=== PATIENT | female | born 1950 | race Caucasian/White ===

== ENCOUNTER 2024-11-24 09:18 | Inpatient (IN) | payer MEDICARE, OTHER ==
[2024-11-24] VITALS (11 sets, daily range): BP systolic 106–119; BP diastolic 52–66; TEMP 97.2–98.2; O2SAT 90–98
[~2024-11-24] VITALS: Ht 165.1 cm; Wt 77.1 kg
[2024-11-24 10:25] LABS: BASOPHILS % (AUTO) 0.1 % (0.0-2.0); HEMATOCRIT 38.7 % (31.2-41.9); HEMOGLOBIN 13.2 g/dL (10.9-14.3); LYMPHOCYTES # (AUTO) 0.5 K/uL (0.8-4.8); LYMPHOCYTES % (AUTO) 8.5 % (20.5-51.5); MEAN CORPUSCULAR HEMOGLOBIN 29.4 uug (24.7-32.8); MEAN CORPUSCULAR HGB CONC 34 g/dL (32.3-35.6); MEAN CORPUSCULAR VOLUME 86.4 fL (75.5-95.3); MONOCYTES # (AUTO) 0.1 K/uL (0.1-1.30); MONOCYTES % (AUTO) 1.7 % (0.0-11.0); NEUTROPHILS # (AUTO) 5.8 K/uL (1.8-8.9); NEUTROPHILS % (AUTO) 89.7 % (38.5-71.5); PLATELET COUNT (AUTO) 203 K/uL (179-408); RED BLOOD CELL COUNT(AUTO) 4.48 MIL/uL (3.63-4.92); RED CELL DISTRIBUTION WIDTH 14.5 % (12.3-17.7); WHITE BLOOD COUNT (AUTO) 6.5 K/uL (3.8-11.8)
[2024-11-24 10:32] LABS: DIFFERENTIAL COMMENT 1
[2024-11-24 10:35] LABS: CALCIUM 8.6 mg/dL (8.5-10.1); CARBON DIOXIDE 23 mmol/L (21-32); CHLORIDE 90 mmol/L (98-107); CREATININE 1.5 mg/dL (0.6-1.3); GLUCOSE 92 mg/dL (74-106); POTASSIUM 3.6 mmol/L (3.5-5.1); SODIUM SERUM 126 mmol/L (136-145); UREA NITROGEN, BLOOD 28 mg/dL (7-18)
[2024-11-24] MEDS ORDERED: AZITHROMYCIN 500MG/ D5W 250ML IVPB **ER PYXIS ONLY IV ONE (10:36)
[2024-11-24] MEDS: AZITHROMYCIN IV 500 MG in IV DEXTROSE 5% 250 ML IV ONE (10:43)
[2024-11-24 10:48] LABS: ALANINE AMINOTRANSFERASE 20 U/L (14-59); ALBUMIN 2.2 g/dL (3.4-5.0); ALKALINE PHOSPHATASE 58 U/L (50-136); ASPARTATE AMINOTRANSFERASE 36 U/L (15-37); BILIRUBIN,DIRECT 0.6 mg/dL (0.0-0.2); BILIRUBIN,TOTAL 1.1 mg/dL (0.2-1.0); NT-PRO BNP 551 pg/mL (0-125); TOTAL PROTEIN, SERUM 6.7 g/dL (6.4-8.2)
[2024-11-24] MEDS ORDERED: ALBUTEROL SULFATE 2.5 MG/3 ML NEBU ONE (11:28)
[2024-11-24] MEDS ORDERED: IPRATROPIUM BROMIDE 0.5 MG/2.5 ML NEBU ONE (11:28)
[2024-11-24] MEDS: CEFTRIAXONE 1 G in IV DEXTROSE 5% 50 ML IV ONE (11:48)
[2024-11-24] MEDS: ALBUTEROL SULFATE 2.5 MG/3 ML NEBU NEB ONE (11:51)
[2024-11-24] MEDS: IPRATROPIUM BROMIDE 0.5 MG/2.5 ML NEBU NEB ONE (11:51)
[2024-11-24] MEDS: IV NS 1000 ML 1,000 ML IV ONE (11:54)
[2024-11-24] MEDS ORDERED: GUAIFENESIN/CODEINE 5 ML LIQUID UDC ONE (13:18)
[2024-11-24] MEDS: GUAIFENESIN/CODEINE 5 ML LIQUID UDC PO ONE (13:20)
[2024-11-24] MEDS ORDERED: ALBUTEROL SULFATE 1.25 MG/3 ML NEBU NEB PRN (16:30)
[2024-11-24] MEDS ORDERED: methylPREDNISolone SOD SUCC 125 MG/2 ML VIAL IV SCH (16:30)
[2024-11-24] MEDS ORDERED: IPRATROPIUM BROMIDE 0.5 MG/2.5 ML NEBU NEB PRN (16:30)
[2024-11-24] MEDS ORDERED: ONDANSETRON 4 MG/2 ML VIAL IV PRN (16:30)
[2024-11-24] MEDS ORDERED: levoFLOXacin 500 MG/D5W 500 MG in PREMIXED 1 EACH IV SCH (16:30)
[2024-11-24] MEDS ORDERED: IV NORMAL SALINE 250 ML IV ONE (16:38)
[2024-11-24] MEDS ORDERED: SWABABLE VALVE TRANSFER SET EA MC ONE (16:38)
[2024-11-24] MEDS ORDERED: IOHEXOL 300MG/ML 100 ML INFUS..BTL ONE (16:38)
[2024-11-24] MEDS: methylPREDNISolone SOD SUCC 40 MG/ML VIAL IV SCH (17:34)
[2024-11-24] MEDS: ALBUTEROL SULFATE 1.25 MG/3 ML NEBU NEB SCH (18:19)
[2024-11-24] MEDS: IPRATROPIUM BROMIDE 0.5 MG/2.5 ML NEBU NEB SCH (18:19)
[2024-11-24] MEDS: IV NS 1000 ML 1,000 ML IV PRN (20:05)
[2024-11-24] MEDS: ENOXAPARIN SODIUM 40 MG/0.4 ML DISP.SYRIN SQ SCH (21:30)
[2024-11-24] MEDS: GUAIFENESIN/DEXTROMETHORPHAN 5 ML UDC PO PRN (22:00)
[2024-11-25] VITALS (17 sets, daily range): BP systolic 115–132; BP diastolic 47–87; TEMP 97.3–99.1; O2SAT 93–100
[2024-11-25 07:58] LABS: CALCIUM 8.4 mg/dL (8.5-10.1); CARBON DIOXIDE 26 mmol/L (21-32); CHLORIDE 95 mmol/L (98-107); CHOLESTEROL 100 mg/dL (<200); CREATININE 0.9 mg/dL (0.6-1.3); GLUCOSE 152 mg/dL (74-106); HDL CHOLESTEROL 19 mg/dL (40-60); PHOSPHOROUS 2.4 mg/dL (2.5-4.9); SODIUM SERUM 129 mmol/L (136-145); TRIGLYCERIDES 126 MG/DL (30-150); UREA NITROGEN, BLOOD 24 mg/dL (7-18)
[2024-11-25] MEDS: POTASSIUM CHLORIDE 10 MEQ TAB.PRT.SR PO SCH (09:24)
[2024-11-25] MEDS: AZITHROMYCIN IV 500 MG in IV DEXTROSE 5% 250 ML IV SCH (09:24)
[2024-11-25 12:16] LABS: BASOPHILS % (AUTO) 0.2 % (0.0-2.0); DIFFERENTIAL COMMENT 1; HEMATOCRIT 33.6 % (31.2-41.9); HEMOGLOBIN 11.6 g/dL (10.9-14.3); LYMPHOCYTES # (AUTO) 0.5 K/uL (0.8-4.8); LYMPHOCYTES % (AUTO) 7.5 % (20.5-51.5); MEAN CORPUSCULAR HEMOGLOBIN 29.6 uug (24.7-32.8); MEAN CORPUSCULAR HGB CONC 35 g/dL (32.3-35.6); MEAN CORPUSCULAR VOLUME 85.8 fL (75.5-95.3); MONOCYTES # (AUTO) 0.3 K/uL (0.1-1.30); MONOCYTES % (AUTO) 3.6 % (0.0-11.0); NEUTROPHILS # (AUTO) 6.2 K/uL (1.8-8.9); NEUTROPHILS % (AUTO) 88.7 % (38.5-71.5); PLATELET COUNT (AUTO) 199 K/uL (179-408); RED BLOOD CELL COUNT(AUTO) 3.92 MIL/uL (3.63-4.92); RED CELL DISTRIBUTION WIDTH 14.5 % (12.3-17.7)
[2024-11-25] MEDS: CEFTRIAXONE 1 G in IV DEXTROSE 5% 50 ML IV SCH (12:19)
[2024-11-25] MEDS: BENZONATATE 100 MG CAPSULE PO SCH (12:19)
[2024-11-25] MEDS: NEUTRA PHOS PACKET PO SCH (15:54)
[2024-11-25] MEDS ORDERED: LORA-259 PO (18:30)
[2024-11-25] MEDS ORDERED: LOSA50TA39 PO (18:30)
[2024-11-25] MEDS ORDERED: ASPI-618 PO (18:32)
[2024-11-25] MEDS ORDERED: CHLO25TA2 PO (18:32)
[2024-11-25] MEDS ORDERED: AMLO-212 PO (18:34)
[2024-11-25] MEDS ORDERED: HYDR12.55 PO (18:36)
[2024-11-25] MEDS ORDERED: ERGO500040 PO (18:36)
[2024-11-25] MEDS: ACETAMINOPHEN 325 MG TABLET PO PRN (23:25)
[2024-11-26] VITALS (22 sets, daily range): BP systolic 128–163; BP diastolic 52–87; TEMP 97.6–98.5; O2SAT 93–99
[2024-11-26 06:14] LABS: ABG BASE EXCESS 1.4 mmol/L (-2.0-3.0); ABG HCO3 25.1 mmol/L (21.0-28.0); ABG PCO2 36.2 mmHg (32.0-45.0); ABG PH 7.458 (7.350-7.450); ABG PO2 72.6 mmHg (83.0-108.0); ABG SITE RIGHT RADIAL; ABG TOTAL HEMOGLOBIN 12.6 G/dL (12.0-16.0); AaDO2 95.4 mmHg; COHb 0.1 % (0.5-1.5); MetHb 0.2 % (0.0-1.5); O2Hb 94.9 % (94.0-98.0)
[2024-11-26 07:57] LABS: BASOPHILS % (AUTO) 0.1 % (0.0-2.0); HEMATOCRIT 35.5 % (31.2-41.9); HEMOGLOBIN 12.1 g/dL (10.9-14.3); LYMPHOCYTES # (AUTO) 0.9 K/uL (0.8-4.8); LYMPHOCYTES % (AUTO) 7.2 % (20.5-51.5); MEAN CORPUSCULAR HEMOGLOBIN 29.2 uug (24.7-32.8); MEAN CORPUSCULAR HGB CONC 34 g/dL (32.3-35.6); MEAN CORPUSCULAR VOLUME 85.5 fL (75.5-95.3); MONOCYTES # (AUTO) 0.8 K/uL (0.1-1.30); MONOCYTES % (AUTO) 6.1 % (0.0-11.0); NEUTROPHILS # (AUTO) 11.3 K/uL (1.8-8.9); NEUTROPHILS % (AUTO) 86.6 % (38.5-71.5); PLATELET COUNT (AUTO) 252 K/uL (179-408); RED BLOOD CELL COUNT(AUTO) 4.15 MIL/uL (3.63-4.92); RED CELL DISTRIBUTION WIDTH 14.4 % (12.3-17.7)
[2024-11-26 08:09] LABS: CALCIUM 8.8 mg/dL (8.5-10.1); CARBON DIOXIDE 28 mmol/L (21-32); CHLORIDE 96 mmol/L (98-107); CREATININE 0.8 mg/dL (0.6-1.3); GLUCOSE 193 mg/dL (74-106); MAGNESIUM 2.1 mg/dL (1.8-2.4); PHOSPHOROUS 1.9 mg/dL (2.5-4.9); POTASSIUM 3.2 mmol/L (3.5-5.1); SODIUM SERUM 133 mmol/L (136-145); UREA NITROGEN, BLOOD 18 mg/dL (7-18); URIC ACID 5.3 mg/dL (2.6-6.0)
[2024-11-26 08:18] LABS: DIFFERENTIAL COMMENT 1
[2024-11-26] MEDS: LORAZEPAM 1 MG TABLET PO STA (08:35)
[2024-11-26 09:06] LABS: THYROID STIMULATING HORMONE 0.864 mIU/mL (0.358-3.740)
[2024-11-26] MEDS: POTASSIUM CHLORIDE 20 MEQ TAB.PRT.SR PO ONE (10:11)
[2024-11-26] MEDS: NEUTRA PHOS PACKET PO SCH (10:11)
[2024-11-26] MEDS ORDERED: POTASSIUM PHOSPHATE MM 15 MMOL in IV NORMAL SALINE 250 ML IV ONE (11:00)
[2024-11-26] MEDS ORDERED: ERGOCALCIFEROL 50,000 UNIT CAPSULE PO SCH (11:15)
[2024-11-26] MEDS: FUROSEMIDE 40 MG/4 ML VIAL IV ONE (11:50)
[2024-11-26] MEDS: LOSARTAN POTASSIUM 50 MG TABLET PO SCH (12:22)
[2024-11-26] MEDS: CHLORTHALIDONE 25 MG TABLET PO SCH (12:22)
[2024-11-26] MEDS: AMLODIPINE 5 MG TABLET PO SCH (12:23)
[2024-11-26] MEDS: ASPIRIN EC 81 MG TABLET.DR PO SCH (12:23)
[2024-11-26] MEDS ORDERED: methylPREDNISolone SOD SUCC 125 MG/2 ML VIAL IV SCH ×2 (14:00→21:00)
[2024-11-26] MEDS ORDERED: DEXTROSE 50% 50 ML DISP.SYRIN IV PRN (16:00)
[2024-11-26] MEDS: BLOOD SUGAR DIAGNOSTIC 1 EACH STRIP VI SCH (17:05)
[2024-11-26] MEDS: INSULIN REGULAR, HUMAN 1000 UNIT/10 ML VIAL SQ PRN (17:09)
[2024-11-26] MEDS: methylPREDNISolone SOD SUCC 40 MG/ML VIAL IV SCH (20:13)
[2024-11-27] VITALS (17 sets, daily range): BP systolic 126–149; BP diastolic 53–81; TEMP 97.5–98.5; O2SAT 94–99
[2024-11-27 06:53] LABS: BASOPHILS % (AUTO) 0.3 % (0.0-2.0); EOSINOPHILS % (AUTO) 0.1 % (0.0-7.0); HEMATOCRIT 35.5 % (31.2-41.9); HEMOGLOBIN 12.4 g/dL (10.9-14.3); LYMPHOCYTES # (AUTO) 1.2 K/uL (0.8-4.8); MEAN CORPUSCULAR HEMOGLOBIN 29.9 uug (24.7-32.8); MEAN CORPUSCULAR HGB CONC 35 g/dL (32.3-35.6); MEAN CORPUSCULAR VOLUME 85.5 fL (75.5-95.3); MONOCYTES # (AUTO) 0.8 K/uL (0.1-1.30); NEUTROPHILS % (AUTO) 86.6 % (38.5-71.5); PLATELET COUNT (AUTO) 286 K/uL (179-408); RED BLOOD CELL COUNT(AUTO) 4.15 MIL/uL (3.63-4.92); RED CELL DISTRIBUTION WIDTH 14.3 % (12.3-17.7)
[2024-11-27 07:07] LABS: CALCIUM 8.9 mg/dL (8.5-10.1); CARBON DIOXIDE 33 mmol/L (21-32); CHLORIDE 96 mmol/L (98-107); CREATININE 0.8 mg/dL (0.6-1.3); GLUCOSE 142 mg/dL (74-106); MAGNESIUM 1.9 mg/dL (1.8-2.4); PHOSPHOROUS 2.9 mg/dL (2.5-4.9); POTASSIUM 3.4 mmol/L (3.5-5.1); SODIUM SERUM 135 mmol/L (136-145); UREA NITROGEN, BLOOD 20 mg/dL (7-18)
[2024-11-27 07:08] LABS: DIFFERENTIAL COMMENT 1
[2024-11-27] MEDS: INSULIN REGULAR, HUMAN 300 UNITS/3 ML VIAL SQ PRN (08:24)
[2024-11-27] MEDS: POTASSIUM CHLORIDE 20 MEQ POWDER PACKET PO ONE (09:44)
[2024-11-27] MEDS: MAGNESIUM HYDROXIDE 30 ML LIQUID UDC PO ONE (13:14)
[2024-11-27] MEDS ORDERED: OSELTAMIVIR PHOSPHATE 75 MG CAPSULE PO SCH (13:30)
[2024-11-27] MEDS: OSELTAMIVIR NG/GT 30 MG/5 ML LIQ PO SCH (14:05)
[2024-11-27] MEDS: MAGNESIUM HYDROXIDE 30 ML LIQUID UDC PO PRN (19:36)
[2024-11-28] VITALS (20 sets, daily range): BP systolic 113–149; BP diastolic 53–79; TEMP 97–98.6; O2SAT 95–99
[2024-11-28] MEDS: OSELTAMIVIR PHOSPHATE 75 MG CAPSULE PO SCH (01:45)
[2024-11-28 07:23] LABS: BASOPHILS # (AUTO) 0.1 K/UL (0.0-0.2); BASOPHILS % (AUTO) 0.3 % (0.0-2.0); HEMATOCRIT 36.9 % (31.2-41.9); HEMOGLOBIN 12.5 g/dL (10.9-14.3); LYMPHOCYTES # (AUTO) 1.9 K/uL (0.8-4.8); LYMPHOCYTES % (AUTO) 8.7 % (20.5-51.5); MEAN CORPUSCULAR HEMOGLOBIN 29.3 uug (24.7-32.8); MEAN CORPUSCULAR HGB CONC 34 g/dL (32.3-35.6); MEAN CORPUSCULAR VOLUME 86.6 fL (75.5-95.3); MONOCYTES # (AUTO) 0.7 K/uL (0.1-1.30); MONOCYTES % (AUTO) 3.3 % (0.0-11.0); NEUTROPHILS # (AUTO) 19.4 K/uL (1.8-8.9); NEUTROPHILS % (AUTO) 87.7 % (38.5-71.5); PLATELET COUNT (AUTO) 317 K/uL (179-408); RED BLOOD CELL COUNT(AUTO) 4.26 MIL/uL (3.63-4.92); RED CELL DISTRIBUTION WIDTH 14.7 % (12.3-17.7); WHITE BLOOD COUNT (AUTO) 22.2 K/uL (3.8-11.8)
[2024-11-28 07:46] LABS: DIFFERENTIAL COMMENT 1
[2024-11-28 07:48] LABS: CALCIUM 9.1 mg/dL (8.5-10.1); CARBON DIOXIDE 28 mmol/L (21-32); CHLORIDE 93 mmol/L (98-107); CREATININE 0.8 mg/dL (0.6-1.3); GLUCOSE 215 mg/dL (74-106); PHOSPHOROUS 3.4 mg/dL (2.5-4.9); POTASSIUM 4.4 mmol/L (3.5-5.1); SODIUM SERUM 130 mmol/L (136-145); UREA NITROGEN, BLOOD 19 mg/dL (7-18)
[2024-11-28] MEDS: OSELTAMIVIR NG/GT 30 MG/5 ML LIQ PO SCH (09:07)
[2024-11-28] MEDS: CEFTRIAXONE 2 G in IV DEXTROSE 5% 100 ML IV SCH (13:56)
[2024-11-28] MEDS: GUAIFENESIN SUGAR FREE 100 MG/5 ML UDC PO PRN (17:05)
[2024-11-28] MEDS: PANTOPRAZOLE SODIUM 40 MG TABLET.DR PO SCH (17:06)
[2024-11-28] MEDS: LORAZEPAM 1 MG TABLET PO PRN (20:49)
[2024-11-28] MEDS: methylPREDNISolone SOD SUCC 40 MG/ML VIAL IV SCH (20:50)
[2024-11-29] VITALS (15 sets, daily range): BP systolic 117–147; BP diastolic 58–71; TEMP 97.9–98.1; O2SAT 95–99
[2024-11-29 02:57] LABS: *BILIRUBIN,URIN NEGATIVE (NEGATIVE); *BLOOD, URINE NEGATIVE (NEGATIVE); *CLARITY,URINE CLEAR (CLEAR); *COLOR,URINE YELLOW (YELLOW); *KETONES,URINE NEGATIVE (NEGATIVE); *PROTEIN,URINE NEGATIVE (NEGATIVE); *UROBILINOGEN,URINE 0.2 E.U./dl (NORMAL); LEUKOCYTE ESTERASE ,URINE NEGATIVE (NEGATIVE); NITRITE, URINE NEGATIVE (NEGATIVE); PH,URINE 7.5 (5.0-8.0); UGLUCOSE TRACE (NEGATIVE)
[2024-11-29 02:58] LABS: *SODIUM RNDM,URINE 62 mmol/L (40-220)
[2024-11-29 04:07] LABS: BACTERIA,URINE NONE SEEN /HPF (NONE SEEN); RBC,URINE 0-3 /HPF (0-3); SQUAMOUS EPITHELIAL CELL,UR FEW /HPF (NONE SEEN); WBC,URINE NONE SEEN /HPF (0-3)
[2024-11-29 07:52] LABS: CALCIUM 9.2 mg/dL (8.5-10.1); CARBON DIOXIDE 30 mmol/L (21-32); CHLORIDE 95 mmol/L (98-107); CREATININE 0.8 mg/dL (0.6-1.3); GLUCOSE 166 mg/dL (74-106); MAGNESIUM 1.9 mg/dL (1.8-2.4); PHOSPHOROUS 4.4 mg/dL (2.5-4.9); POTASSIUM 3.9 mmol/L (3.5-5.1); SODIUM SERUM 134 mmol/L (136-145); UREA NITROGEN, BLOOD 21 mg/dL (7-18)
[2024-11-29 08:03] LABS: BASOPHILS # (AUTO) 0.3 K/UL (0.0-0.2); BASOPHILS % (AUTO) 1.3 % (0.0-2.0); EOSINOPHILS % (AUTO) 0.1 % (0.0-7.0); HEMATOCRIT 38.7 % (31.2-41.9); LYMPHOCYTES # (AUTO) 2.6 K/uL (0.8-4.8); LYMPHOCYTES % (AUTO) 11.8 % (20.5-51.5); MEAN CORPUSCULAR HEMOGLOBIN 28.8 uug (24.7-32.8); MEAN CORPUSCULAR HGB CONC 34 g/dL (32.3-35.6); MONOCYTES # (AUTO) 0.9 K/uL (0.1-1.30); MONOCYTES % (AUTO) 4.2 % (0.0-11.0); NEUTROPHILS # (AUTO) 18.2 K/uL (1.8-8.9); NEUTROPHILS % (AUTO) 82.6 % (38.5-71.5); PLATELET COUNT (AUTO) 355 K/uL (179-408); RED CELL DISTRIBUTION WIDTH 14.6 % (12.3-17.7)
[2024-11-29 08:12] LABS: DIFFERENTIAL COMMENT 1
[2024-11-29 11:55] LABS: EOSINOPHILS % (MANUAL) 1 % (0-8); LYMPHOCYTES % (MANUAL) 12 % (20-40); MONOCYTES % (MANUAL) 4 % (2-10); NEUTROPHILS % (MANUAL) 83 % (42-75); PLATELET ESTIMATE ADEQUATE
[2024-11-29] MEDS: predniSONE 20 MG TABLET PO SCH (17:19)
[2024-11-29] MEDS: ENSURE ENLIVE (VAN) 240 ML LIQUID PO SCH (17:22)
[2024-11-29] MEDS: OSELTAMIVIR PHOSPHATE 75 MG CAPSULE PO SCH (20:22)
[2024-11-30] VITALS (19 sets, daily range): BP systolic 107–121; BP diastolic 50–86; TEMP 97.5–98.1; O2SAT 94–99
[2024-11-30 07:25] LABS: BASOPHILS # (AUTO) 0.3 K/UL (0.0-0.2); BASOPHILS % (AUTO) 1.5 % (0.0-2.0); EOSINOPHILS # (AUTO) 0.1 K/uL (0.0-0.7); EOSINOPHILS % (AUTO) 0.3 % (0.0-7.0); HEMATOCRIT 38.7 % (31.2-41.9); HEMOGLOBIN 13.2 g/dL (10.9-14.3); LYMPHOCYTES # (AUTO) 2.9 K/uL (0.8-4.8); LYMPHOCYTES % (AUTO) 15.9 % (20.5-51.5); MEAN CORPUSCULAR HEMOGLOBIN 29.4 uug (24.7-32.8); MEAN CORPUSCULAR HGB CONC 34 g/dL (32.3-35.6); MEAN CORPUSCULAR VOLUME 86.4 fL (75.5-95.3); MONOCYTES # (AUTO) 0.8 K/uL (0.1-1.30); MONOCYTES % (AUTO) 4.5 % (0.0-11.0); NEUTROPHILS # (AUTO) 14.4 K/uL (1.8-8.9); NEUTROPHILS % (AUTO) 77.8 % (38.5-71.5); PLATELET COUNT (AUTO) 408 K/uL (179-408); RED BLOOD CELL COUNT(AUTO) 4.48 MIL/uL (3.63-4.92); WHITE BLOOD COUNT (AUTO) 18.6 K/uL (3.8-11.8)
[2024-11-30 07:43] LABS: CALCIUM 8.8 mg/dL (8.5-10.1); CARBON DIOXIDE 28 mmol/L (21-32); CHLORIDE 96 mmol/L (98-107); CREATININE 0.8 mg/dL (0.6-1.3); GLUCOSE 167 mg/dL (74-106); MAGNESIUM 1.8 mg/dL (1.8-2.4); PHOSPHOROUS 3.6 mg/dL (2.5-4.9); POTASSIUM 4.1 mmol/L (3.5-5.1); SODIUM SERUM 132 mmol/L (136-145); UREA NITROGEN, BLOOD 24 mg/dL (7-18)
[2024-11-30 07:44] LABS: DIFFERENTIAL COMMENT 1
[2024-11-30] MEDS: predniSONE 20 MG TABLET PO SCH (09:35)
[2024-11-30] MEDS: LORAZEPAM 0.5 MG TABLET PO PRN (20:33)
[2024-12-01] VITALS (17 sets, daily range): BP systolic 102–136; BP diastolic 41–62; TEMP 97.5–98; O2SAT 94–99
[2024-12-01 07:27] LABS: BASOPHILS # (AUTO) 0.2 K/UL (0.0-0.2); BASOPHILS % (AUTO) 1.1 % (0.0-2.0); EOSINOPHILS # (AUTO) 0.1 K/uL (0.0-0.7); EOSINOPHILS % (AUTO) 0.8 % (0.0-7.0); HEMATOCRIT 38.8 % (31.2-41.9); HEMOGLOBIN 13.1 g/dL (10.9-14.3); LYMPHOCYTES # (AUTO) 3.8 K/uL (0.8-4.8); LYMPHOCYTES % (AUTO) 20.6 % (20.5-51.5); MEAN CORPUSCULAR HEMOGLOBIN 29.1 uug (24.7-32.8); MEAN CORPUSCULAR HGB CONC 34 g/dL (32.3-35.6); MEAN CORPUSCULAR VOLUME 86.4 fL (75.5-95.3); MONOCYTES % (AUTO) 5.4 % (0.0-11.0); NEUTROPHILS # (AUTO) 13.1 K/uL (1.8-8.9); NEUTROPHILS % (AUTO) 72.1 % (38.5-71.5); PLATELET COUNT (AUTO) 400 K/uL (179-408); RED BLOOD CELL COUNT(AUTO) 4.49 MIL/uL (3.63-4.92); RED CELL DISTRIBUTION WIDTH 14.7 % (12.3-17.7); WHITE BLOOD COUNT (AUTO) 18.2 K/uL (3.8-11.8)
[2024-12-01 07:47] LABS: DIFFERENTIAL COMMENT 1
[2024-12-01 08:11] LABS: CALCIUM 8.8 mg/dL (8.5-10.1); CARBON DIOXIDE 27 mmol/L (21-32); CHLORIDE 97 mmol/L (98-107); CREATININE 0.7 mg/dL (0.6-1.3); GLUCOSE 104 mg/dL (74-106); MAGNESIUM 1.9 mg/dL (1.8-2.4); PHOSPHOROUS 3.3 mg/dL (2.5-4.9); POTASSIUM 3.8 mmol/L (3.5-5.1); SODIUM SERUM 129 mmol/L (136-145); UREA NITROGEN, BLOOD 31 mg/dL (7-18)
[2024-12-01 12:34] LABS: NEUTROPHILS % (MANUAL) 72 % (42-75)
[2024-12-01 12:41] LABS: EOSINOPHILS % (MANUAL) 2 % (0-8); LYMPHOCYTES % (MANUAL) 21 % (20-40); MONOCYTES % (MANUAL) 5 % (2-10); PLATELET ESTIMATE ADEQUATE
[2024-12-02] VITALS (17 sets, daily range): BP systolic 109–142; BP diastolic 52–85; TEMP 97.6–97.9; O2SAT 94–99
[2024-12-02 07:28] LABS: BASOPHILS # (AUTO) 0.3 K/UL (0.0-0.2); BASOPHILS % (AUTO) 1.5 % (0.0-2.0); EOSINOPHILS # (AUTO) 0.1 K/uL (0.0-0.7); EOSINOPHILS % (AUTO) 0.7 % (0.0-7.0); HEMATOCRIT 37.3 % (31.2-41.9); HEMOGLOBIN 12.8 g/dL (10.9-14.3); LYMPHOCYTES # (AUTO) 3.6 K/uL (0.8-4.8); MEAN CORPUSCULAR HEMOGLOBIN 29.6 uug (24.7-32.8); MEAN CORPUSCULAR HGB CONC 34 g/dL (32.3-35.6); MEAN CORPUSCULAR VOLUME 86.3 fL (75.5-95.3); MONOCYTES # (AUTO) 1.1 K/uL (0.1-1.30); MONOCYTES % (AUTO) 6.3 % (0.0-11.0); NEUTROPHILS # (AUTO) 12.8 K/uL (1.8-8.9); NEUTROPHILS % (AUTO) 71.5 % (38.5-71.5); PLATELET COUNT (AUTO) 400 K/uL (179-408); RED BLOOD CELL COUNT(AUTO) 4.32 MIL/uL (3.63-4.92); RED CELL DISTRIBUTION WIDTH 14.5 % (12.3-17.7); WHITE BLOOD COUNT (AUTO) 17.9 K/uL (3.8-11.8)
[2024-12-02 07:44] LABS: CALCIUM 8.6 mg/dL (8.5-10.1); CARBON DIOXIDE 29 mmol/L (21-32); CHLORIDE 97 mmol/L (98-107); CREATININE 0.8 mg/dL (0.6-1.3); GLUCOSE 126 mg/dL (74-106); MAGNESIUM 1.8 mg/dL (1.8-2.4); PHOSPHOROUS 2.9 mg/dL (2.5-4.9); SODIUM SERUM 133 mmol/L (136-145); UREA NITROGEN, BLOOD 27 mg/dL (7-18)
[2024-12-02 07:47] LABS: DIFFERENTIAL COMMENT 1
[2024-12-02] MEDS ORDERED: predniSONE 20 MG TABLET PO SCH (09:00)
[2024-12-02] MEDS: predniSONE 10 MG TABLET PO SCH (09:21)
[2024-12-02 11:21] LABS: LYMPHOCYTES % (MANUAL) 14 % (20-40); MONOCYTES % (MANUAL) 11 % (2-10); MYELOCYTES % 3 % (0-0); NEUTROPHILS % (MANUAL) 71 % (42-75); PLATELET ESTIMATE ADEQUATE; PROMYELOCYTES % 1 %
[2024-12-03] VITALS (15 sets, daily range): BP systolic 101–130; BP diastolic 43–68; TEMP 97.3–97.9; O2SAT 96–99
[2024-12-03] MEDS ORDERED: CEFT2VIA14 IV (10:21)
[2024-12-03] MEDS ORDERED: PRED20TA PO (10:21)
[2024-12-03] MEDS ORDERED: PRED2.5T PO (10:21)
== END 2024-12-03 18:50 | disposition home health service (06) | DRG 193 ==
LOC: ER 09:18 → TELE3 16:27 → MEDSURG3 12-02 10:26
PROVIDERS: ADMIT Nurse Practitioner Acute Care; ATTEND Nurse Practitioner Acute Care
PROC: 05H933Z Insertion of Infusion Device into Right Brachial Vein, Percutaneous Approach (ICD-10-PCS; principal; 2024-11-28)
DX: J10.01 Influenza due to other identified influenza virus with the same other identified influenza virus pneumonia (principal); I50.33 Acute on chronic diastolic (congestive) heart failure; J96.01 Acute respiratory failure with hypoxia; N17.0 Acute kidney failure with tubular necrosis; R78.81 Bacteremia; D68.59 Other primary thrombophilia; E44.0 Moderate protein-calorie malnutrition; E87.1 Hypo-osmolality and hyponatremia; J44.0 Chronic obstructive pulmonary disease with (acute) lower respiratory infection; J44.1 Chronic obstructive pulmonary disease with (acute) exacerbation; B95.3 Streptococcus pneumoniae as the cause of diseases classified elsewhere; J13 Pneumonia due to Streptococcus pneumoniae; E86.0 Dehydration; F41.9 Anxiety disorder, unspecified; I11.0 Hypertensive heart disease with heart failure; E88.09 Other disorders of plasma-protein metabolism, not elsewhere classified; E87.6 Hypokalemia; E83.39 Other disorders of phosphorus metabolism; Z86.73 Personal history of transient ischemic attack (TIA), and cerebral infarction without residual deficits; I70.0 Atherosclerosis of aorta; K59.00 Constipation, unspecified; F17.210 Nicotine dependence, cigarettes, uncomplicated; Z90.49 Acquired absence of other specified parts of digestive tract; M94.0 Chondrocostal junction syndrome [Tietze]
CPT/HCPCS: 36415; 36600; 70030-TC; 71045; 71260; 83735; 84100; 84300; 84443; 84484; 84550; 85025; 87040; 87077; 93307; 94640; 94664; 94760; G0378; J0456; J0696; J1650; J1815; J1940; J2405; J2919; J3490; J3590; J7040; J7050; J7512; Q9967